=== PATIENT | female | born 1970 | race Caucasian/White ===

== ENCOUNTER → 2024-02-10 | Outpatient (REF) | payer BC, SELFPAY | LOC: DHSLP | PROVIDERS: ATTENDING PHYSICIAN Internal Medicine; FAMILY PHYSICIAN Internal Medicine | DX: G47.33 Obstructive sleep apnea (adult) (pediatric) (principal) | CPT/HCPCS: 95800 ==

== ENCOUNTER → 2024-11-04 16:06 | Outpatient (REF) | payer BC, SELFPAY | LOC: WDC 16:06 | PROVIDERS: ATTENDING PHYSICIAN Internal Medicine | DX: Z12.31 Encounter for screening mammogram for malignant neoplasm of breast (principal) | CPT/HCPCS: 77063; 77067 ==

== ENCOUNTER → 2024-11-12 08:48 | Outpatient (REF) | payer BC, SELFPAY | LOC: WDC 08:48 | PROVIDERS: ATTENDING PHYSICIAN Internal Medicine | DX: R92.8 Other abnormal and inconclusive findings on diagnostic imaging of breast (principal) | CPT/HCPCS: 76642 ==

== ENCOUNTER 2025-09-21 06:17 | Outpatient (RCR) | payer BC, SELFPAY | END 2025-09-21 23:59 | disposition home or self-care (01) | LOC: RPT 06:17 | PROVIDERS: ATTENDING PHYSICIAN Internal Medicine | DX: M54.42 Lumbago with sciatica, left side (principal); Z73.6 Limitation of activities due to disability; M79.662 Pain in left lower leg | CPT/HCPCS: 72110; 73522; 97110; 97162 ==